=== PATIENT | male | born 1980 | race Caucasian/White ===

== ENCOUNTER → 2019-08-17 08:39 | Outpatient (BNVA) | payer OTHER, SELFPAY | PROVIDERS: Family Provider Emergency Medicine Emergency Medical Services; PCP Emergency Medicine Emergency Medical Services; Visit Provider Nurse Practitioner | DX: M54.5 Low back pain (principal); G90.50 Complex regional pain syndrome I, unspecified; M79.604 Pain in right leg; M79.605 Pain in left leg; Z98.890 Other specified postprocedural states; Z79.891 Long term (current) use of opiate analgesic | CPT/HCPCS: 99214 ==

== ENCOUNTER → 2019-10-11 07:54 | Outpatient (BNVA) | payer OTHER, SELFPAY | PROVIDERS: Family Provider Emergency Medicine Emergency Medical Services; PCP Emergency Medicine Emergency Medical Services; Visit Provider Anesthesiology | DX: M54.5 Low back pain (principal); G90.50 Complex regional pain syndrome I, unspecified; M79.604 Pain in right leg; M79.605 Pain in left leg; Z79.891 Long term (current) use of opiate analgesic | CPT/HCPCS: 99214 ==

== ENCOUNTER → 2020-01-24 11:03 | Outpatient (BNVA) | payer OTHER, SELFPAY | PROVIDERS: Family Provider Emergency Medicine Emergency Medical Services; PCP Emergency Medicine Emergency Medical Services; Visit Provider Podiatrist Foot & Ankle Surgery | DX: M25.571 Pain in right ankle and joints of right foot (principal); M25.572 Pain in left ankle and joints of left foot | CPT/HCPCS: 73610 ==

== ENCOUNTER 2020-01-24 14:03 | Outpatient (CLI) | payer OTHER, SELFPAY | END 2020-01-24 14:04 | disposition home or self-care (01) | LOC: SPT 14:03 | PROVIDERS: Family Provider Emergency Medicine Emergency Medical Services; PCP Emergency Medicine Emergency Medical Services; Visit Provider Podiatrist Foot & Ankle Surgery | DX: M72.2 Plantar fascial fibromatosis (principal) | CPT/HCPCS: 97760; L4397 ==

== ENCOUNTER → 2020-02-08 10:29 | Outpatient (BNVA) | payer OTHER, SELFPAY | PROVIDERS: Family Provider Emergency Medicine Emergency Medical Services; PCP Emergency Medicine Emergency Medical Services; Visit Provider Nurse Practitioner | DX: G90.50 Complex regional pain syndrome I, unspecified (principal); M54.5 Low back pain; M79.604 Pain in right leg; Z79.891 Long term (current) use of opiate analgesic | CPT/HCPCS: 99213 ==

== ENCOUNTER 2020-02-27 06:00 | Outpatient (RCR) | payer OTHER, SELFPAY | END 2020-03-08 23:59 | disposition home or self-care (01) | LOC: MPT 06:00 | PROVIDERS: PCP Emergency Medicine Emergency Medical Services; Referring Provider Podiatrist Foot & Ankle Surgery; Visit Provider Podiatrist Foot & Ankle Surgery | DX: M72.2 Plantar fascial fibromatosis (principal) | CPT/HCPCS: 97110; 97140; 97161 ==

== ENCOUNTER 2020-03-09 06:00 | Outpatient (RCR) | payer OTHER, SELFPAY | END 2020-04-08 23:59 | disposition home or self-care (01) | LOC: MPT 06:00 | PROVIDERS: PCP Emergency Medicine Emergency Medical Services; Referring Provider Podiatrist Foot & Ankle Surgery; Visit Provider Podiatrist Foot & Ankle Surgery | DX: M72.2 Plantar fascial fibromatosis (principal) | CPT/HCPCS: 97035; 97110; 97140 ==

== ENCOUNTER 2020-04-09 06:00 | Outpatient (RCR) | payer OTHER, SELFPAY | END 2020-05-08 23:59 | disposition home or self-care (01) | LOC: MPT 06:00 | PROVIDERS: PCP Emergency Medicine Emergency Medical Services; Referring Provider Podiatrist Foot & Ankle Surgery; Visit Provider Podiatrist Foot & Ankle Surgery | DX: M72.2 Plantar fascial fibromatosis (principal) | CPT/HCPCS: 97110; 97112; 97140 ==

== ENCOUNTER → 2020-04-11 10:32 | Outpatient (BNVA) | payer OTHER, SELFPAY | PROVIDERS: Family Provider Emergency Medicine Emergency Medical Services; PCP Emergency Medicine Emergency Medical Services; Visit Provider Anesthesiology | DX: G90.50 Complex regional pain syndrome I, unspecified (principal); M79.604 Pain in right leg; M54.9 Dorsalgia, unspecified; M79.605 Pain in left leg; Z98.890 Other specified postprocedural states; Z79.891 Long term (current) use of opiate analgesic | CPT/HCPCS: 99213; 99214 ==

== ENCOUNTER → 2020-06-18 10:00 | Outpatient (BNVA) | payer OTHER, SELFPAY | PROVIDERS: Family Provider Emergency Medicine Emergency Medical Services; PCP Emergency Medicine Emergency Medical Services; Visit Provider Anesthesiology | DX: M54.41 Lumbago with sciatica, right side (principal); G90.50 Complex regional pain syndrome I, unspecified; M79.604 Pain in right leg; M79.605 Pain in left leg; M54.9 Dorsalgia, unspecified; Z79.891 Long term (current) use of opiate analgesic | CPT/HCPCS: 99214 ==

== ENCOUNTER 2020-07-09 06:00 | Outpatient (RCR) | payer OTHER, SELFPAY | END 2020-08-08 23:59 | disposition home or self-care (01) | LOC: MPT 06:00 | PROVIDERS: Family Provider Emergency Medicine Emergency Medical Services; PCP Emergency Medicine Emergency Medical Services; Referring Provider Podiatrist Foot & Ankle Surgery; Visit Provider Podiatrist Foot & Ankle Surgery | DX: M72.2 Plantar fascial fibromatosis (principal) | CPT/HCPCS: 97110; 97140 ==

== ENCOUNTER 2020-08-09 06:00 | Outpatient (RCR) | payer OTHER, SELFPAY | END 2020-09-08 23:59 | disposition home or self-care (01) | LOC: MPT 06:00 | PROVIDERS: Family Provider Emergency Medicine Emergency Medical Services; PCP Emergency Medicine Emergency Medical Services; Referring Provider Podiatrist Foot & Ankle Surgery; Visit Provider Podiatrist Foot & Ankle Surgery | DX: M72.2 Plantar fascial fibromatosis (principal) | CPT/HCPCS: 97110; 97140 ==

== ENCOUNTER → 2020-08-14 09:02 | Outpatient (BNVA) | payer OTHER, SELFPAY | PROVIDERS: Family Provider Emergency Medicine Emergency Medical Services; PCP Emergency Medicine Emergency Medical Services; Visit Provider Anesthesiology | DX: G89.29 Other chronic pain (principal); M54.9 Dorsalgia, unspecified; M79.604 Pain in right leg; Z98.890 Other specified postprocedural states; Z79.891 Long term (current) use of opiate analgesic; Z79.899 Other long term (current) drug therapy | CPT/HCPCS: 99213 ==

== ENCOUNTER 2020-09-09 06:00 | Outpatient (RCR) | payer OTHER, SELFPAY | END 2020-10-06 23:59 | disposition home or self-care (01) | LOC: MPT 06:00 | PROVIDERS: Family Provider Emergency Medicine Emergency Medical Services; PCP Emergency Medicine Emergency Medical Services; Referring Provider Podiatrist Foot & Ankle Surgery; Visit Provider Podiatrist Foot & Ankle Surgery | DX: M72.2 Plantar fascial fibromatosis (principal) | CPT/HCPCS: 97110; 97140 ==

== ENCOUNTER → 2020-10-16 08:42 | Outpatient (BNVA) | payer OTHER, SELFPAY | PROVIDERS: Family Provider Emergency Medicine Emergency Medical Services; PCP Emergency Medicine Emergency Medical Services; Visit Provider Anesthesiology | DX: G89.29 Other chronic pain (principal); M54.9 Dorsalgia, unspecified; M79.604 Pain in right leg; Z98.890 Other specified postprocedural states; Z79.899 Other long term (current) drug therapy; Z79.891 Long term (current) use of opiate analgesic | CPT/HCPCS: 99213 ==

== ENCOUNTER → 2020-11-28 12:26 | Outpatient (BNVA) | payer OTHER, SELFPAY | PROVIDERS: Family Provider Emergency Medicine Emergency Medical Services; PCP Emergency Medicine Emergency Medical Services; Visit Provider Surgery | DX: Z86.010 Personal history of colon polyps (principal); Z20.822 Contact with and (suspected) exposure to COVID-19 | CPT/HCPCS: 87635 ==

== ENCOUNTER 2020-12-04 06:58 | Day surgery (SDC) | payer OTHER, SELFPAY ==
[2020-12-02 12:03] VITALS: BMI 32.8
--- NOTE | 2020-12-04 07:28 | ANES.PREANE2 ---
Pre-Anesthetic Assessment Pre-Anesthetic Assessment: Height/Weight: Height 1.7 m Weight 95.254 kg Preop Diagnosis: Bleeding per rectum and history of colon polyps Proposed Procedure: Operation Date: 12/04/20 08:30 Proposed Procedures p Colonoscopy 08671 Z86.010(Not Applicable) - Hang Jaimes MD Familial anesthetic complications: None Last intake: NPO > 8 hrs Social: Social History: No alcohol and No tobacco Exam: Pre-Anes Outpt Exam: alert, oriented x 3, clear to auscultation bilaterally and regular rate & rhythm Airway: Cervical ROM: WNL MP: 4 Dentition: Full Additional comments: full sesay, large tongue Pulmonary: Pulmonary: Asthma, COPD and Sleep apnea CV/HEM: CV/HEM: HTN GI: GI: GERD (wel lcontrolled on esomeprazole) Comments: IBS, hx of polyps, diverticulitis hx Metabolic: Metabolic: DM Musc/skel: Comments: spinal cord stimulator, complex regional pain disorder (lower legs) d/t compartment syndrome Anesthetic Plan: ASA status: 3 Anesthesia: MAC Risk of > 500 ml blood loss (7ml/kg in children): No PFSH Anesthesia PFSH: Medical History Asthma 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 Bilateral leg pain Chronic back pain Chronic narcotic use Complex regional pain syndrome type 1 COPD (chronic obstructive pulmonary disease) Diabetes 1.5, managed as type 2 Long-term use of high-risk medication Surgical History Hx of biopsy cyst on the left side of neck-benign S/P compartment syndrome decompression BILATERAL- Below the knee - total of 4 surgeries 2 initial surgeries and 2 revisions S/P insertion of spinal cord stimulator 04/2018 S/P routine circumcision Family History Grandfather CAD (coronary artery disease) Denies family history of Anesthesia complication Bleeding disorder Social History Smoking and tobacco status: former smoker Second hand smoke exposure: No Alcohol intake: never Lives independently: Yes Household members: spouse service: Yes status: Discharged History of recent travel: No Data Anesthesia Cardiac Studies: No Data to Display
[2020-12-04] MEDS: sodium chloride 0.9% 1,000 ML 30 ML IV (08:10)
[2020-12-04 08:12] VITALS: BP 118/79; PULSE 87; RESP 18; TEMP 36.8; O2SAT 97
--- NOTE | 2020-12-04 08:12 | W.PM.OPSUD ---
Surgery/Procedure H&P Update DATE OF PROCEDURE: December 04, 2020 DATE H&P PERFORMED: 11/06/20 H&P UPDATE INFORMATION: I have reviewed H&P completed within last 30 days, I have examined patient prior to procedure and No changes to prior documentation PREOP DIAGNOSIS: Bleeding per rectum and history of colon polyps PRIMARY INDICATION FOR PROCEDURE: The same PLANNED PROCEDURE: Operation Date: 12/04/20 08:30 Proposed Procedures p Colonoscopy 35871 Z86.010(Not Applicable) - Hang Jaimes MD
[2020-12-04 08:25] LABS: Glucose Point of Care 194 mg/dL (70-110)
[2020-12-04 08:40] VITALS: BP 116/69; PULSE 96; RESP 16; TEMP 36.1; O2SAT 91
[2020-12-04 08:55] VITALS: BP 117/76; PULSE 82; RESP 16; O2SAT 93
--- NOTE | 2020-12-04 13:13 | ANE.PACU2 ---
Inpatient post-anesthesia follow up: Airway intact: Yes Vital signs: Temperature 97.0 F Pulse Rate 82 Respiratory Rate 16 Blood Pressure 117/76 Pulse Oximetry 93 Oxygen Delivery Me thod Room Air Oxygen Flow Rate 3 Fraction of Inspir ed Oxygen Hydration adequate: Yes Nausea and vomiting: No Pain level: 2 Mental status: Baseline
== END 2020-12-04 09:17 | disposition home or self-care (01) ==
PROVIDERS: Visit Provider Surgery
PROC: 0DJD8ZZ Inspection of Lower Intestinal Tract, Via Natural or Artificial Opening Endoscopic (ICD-10-PCS; CPT 45378; principal; 2020-12-04 08:30)
DX: K62.5 Hemorrhage of anus and rectum (principal); Z86.010 Personal history of colon polyps; K57.30 Diverticulosis of large intestine without perforation or abscess without bleeding; J44.9 Chronic obstructive pulmonary disease, unspecified; G47.30 Sleep apnea, unspecified; K21.9 Gastro-esophageal reflux disease without esophagitis; I10 Essential (primary) hypertension; E13.9 Other specified diabetes mellitus without complications; Z87.891 Personal history of nicotine dependence
CPT/HCPCS: 36416; 45378; 82962; 96360; J2704; J7030

== ENCOUNTER → 2020-12-11 09:46 | Outpatient (BNVA) | payer OTHER, SELFPAY | PROVIDERS: PCP Emergency Medicine Emergency Medical Services; Visit Provider Anesthesiology | DX: G89.29 Other chronic pain (principal); M54.9 Dorsalgia, unspecified; Z79.899 Other long term (current) drug therapy; Z79.891 Long term (current) use of opiate analgesic | CPT/HCPCS: 99213 ==

== ENCOUNTER → 2021-02-07 08:08 | Outpatient (BNVA) | payer OTHER, SELFPAY | PROVIDERS: PCP Emergency Medicine Emergency Medical Services; Visit Provider Anesthesiology | DX: G89.29 Other chronic pain (principal); M54.9 Dorsalgia, unspecified; Z79.899 Other long term (current) drug therapy; Z79.891 Long term (current) use of opiate analgesic; Z87.891 Personal history of nicotine dependence | CPT/HCPCS: 99213 ==

== ENCOUNTER → 2021-04-15 10:16 | Outpatient (BNVA) | payer OTHER, SELFPAY | PROVIDERS: PCP Emergency Medicine Emergency Medical Services; Visit Provider Nurse Practitioner | DX: G89.29 Other chronic pain (principal); M54.9 Dorsalgia, unspecified; M79.604 Pain in right leg; M79.605 Pain in left leg; Z98.890 Other specified postprocedural states; Z79.891 Long term (current) use of opiate analgesic; Z87.891 Personal history of nicotine dependence | CPT/HCPCS: 99213 ==

== ENCOUNTER → 2021-06-04 13:30 | Outpatient (BNVA) | payer OTHER, SELFPAY | PROVIDERS: PCP Emergency Medicine Emergency Medical Services; Visit Provider Internal Medicine Critical Care Medicine | DX: J45.909 Unspecified asthma, uncomplicated (principal); R06.02 Shortness of breath; J45.50 Severe persistent asthma, uncomplicated; R40.0 Somnolence | CPT/HCPCS: 82785; 85025; 86003 ==

== ENCOUNTER → 2021-06-12 09:11 | Outpatient (BNVA) | payer OTHER, SELFPAY | PROVIDERS: PCP Emergency Medicine Emergency Medical Services; Visit Provider Anesthesiology | DX: G89.29 Other chronic pain (principal); M54.9 Dorsalgia, unspecified; Z79.899 Other long term (current) drug therapy; Z79.891 Long term (current) use of opiate analgesic; Z87.891 Personal history of nicotine dependence | CPT/HCPCS: 99213 ==

== ENCOUNTER → 2021-08-13 10:16 | Outpatient (BNVA) | payer OTHER, SELFPAY | PROVIDERS: PCP Emergency Medicine Emergency Medical Services; Visit Provider Anesthesiology | DX: G89.29 Other chronic pain (principal); M54.50 Low back pain, unspecified; M79.604 Pain in right leg; M79.605 Pain in left leg; Z98.890 Other specified postprocedural states; Z79.891 Long term (current) use of opiate analgesic; Z79.899 Other long term (current) drug therapy; Z87.891 Personal history of nicotine dependence | CPT/HCPCS: 99214 ==

== ENCOUNTER → 2023-02-25 16:16 | Outpatient (BNVA) | payer OTHER, SELFPAY | PROVIDERS: PCP Emergency Medicine Emergency Medical Services; Visit Provider Internal Medicine Pulmonary Disease | DX: J44.9 Chronic obstructive pulmonary disease, unspecified (principal); G47.33 Obstructive sleep apnea (adult) (pediatric); J45.50 Severe persistent asthma, uncomplicated | CPT/HCPCS: 71046; 99214 ==

== ENCOUNTER 2023-03-18 07:01 | Outpatient (CLI) | payer OTHER, SELFPAY ==
[2023-03-18 07:13] VITALS: BP 143/90
== END 2023-03-18 07:02 | disposition home or self-care (01) ==
PROVIDERS: PCP Emergency Medicine Emergency Medical Services; Visit Provider Internal Medicine Pulmonary Disease
DX: J44.9 Chronic obstructive pulmonary disease, unspecified (principal); J45.50 Severe persistent asthma, uncomplicated; G47.33 Obstructive sleep apnea (adult) (pediatric)
CPT/HCPCS: 94010; 94618; 94726; 94729

== ENCOUNTER 2023-06-02 02:21 | Emergency (ER) | payer OTHER, SELFPAY ==
[2023-06-02] VITALS (9 sets, daily range): BP systolic 114–144; BP diastolic 76–89; PULSE 80–97; RESP 16–27; TEMP 36.7; O2SAT 89–97; BMI 31.8
--- NOTE | 2023-06-02 02:35 | W.ED.GENADLT ---
HPI - General Adult General: Chief complaint: General Medical Stated complaint: was foaming out of mouth,ambulance advised coming Time Seen by Provider: 06/02/23 02:25 History of Present Illness: Patient was sleeping with his CPAP on and patient's noticed that his mouth. Patient was also unresponsiveThe patient had bloody tinged foam patient's said he was breathing and had a pulse however she started CPR due to him not responding. Patient says he bit the tip of his tongue. states he is episode lasted 5 to 7 minutes. Patient currently has a headache which is not unusual for him. This is his normal headache. Patient denies any cardiac or seizure history. Patient does have a spinal cord stimulator and is a diabetic. Other than the patient's headache and tongue irritation patient denies any complaints and is all back to normal currently. Review of Systems General: Reports: 10 or more systems reviewed and unremarkable except in HPI and below [facility] ED PFSH: Medical History Asthma 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 Bilateral leg pain Bleeding per rectum Chronic back pain Chronic narcotic use Complex regional pain syndrome type 1 COPD (chronic obstructive pulmonary disease) Diabetes 1.5, managed as type 2 Diverticulosis Long-term use of high-risk medication Surgical History Hx of biopsy cyst on the left side of neck-benign S/P compartment syndrome decompression BILATERAL- Below the knee - total of 4 surgeries 2 initial surgeries and 2 revisions S/P insertion of spinal cord stimulator 04/2018 S/P routine circumcision Family History Grandfather CAD (coronary artery disease) Denies family history of Anesthesia complication Bleeding disorder Social History Smoking and tobacco/nicotine status: never used tobacco/nicotine (chewing tobacco x 20 years) Second hand smoke exposure: No Alcohol intake: never Substance/Drug Use: never Lives independently: Yes Household members: spouse service: Yes status: Discharged Physical Exam Const: COMMON NORMALS: no acute distress, average body habitus, patient oriented x3, no limitations, healthy appearing, alert and well nourished HENMT: COMMON NORMALS: normocephalic, atraumatic, hearing grossly normal bilaterally, external ears normal, Normal external nose present, moist oral mucous membranes and oropharynx normal (Mild irritation at the tip of the tongue) HEAD & SCALP: normocephalic and atraumatic NOSE: Normal external nose present EXTERNAL EAR: Yes external ears normal Eye: COMMON NORMALS: Equal, round and reactive pupils present, EOMs intact bilaterally, conjunctivae normal and no scleral icterus CONJUNCTIVA: Yes conjunctivae normal PUPIL: Yes Equal, round and reactive pupils present Neck/C-Spine: COMMON NORMALS: full ROM, no lymphadenopathy, supple, no meningeal signs, no JVD and Thyroid normal THYROID: Thyroid normal Chest: COMMONS NORMALS: normal inspection of the chest and normal palpation of entire chest wall Resp: COMMON NORMALS: normal respiratory effort, No retractions, No use of accessory muscles and clear to auscultation bilaterally AUSCULTATION: clear to auscultation bilaterally Cardio: COMMON NORMALS: no JVD, regular rate, regular rhythm, S1 normal heart sound present, S2 normal heart sound present, No gallops present (Cardio), No clicks present (Cardio), No murmurs present (Cardio) and No rub (Cardio) RATE: regular rate RHYTHM: regular rhythm HEART SOUNDS: S1 normal heart sound present and S2 normal heart sound present GI: COMMON NORMALS: Normal to inspection, nondistended, normoactive bowel sounds present, Soft to palpation, non-tender, No hepatosplenomegaly present and no masses PALPATION: Yes Soft to palpation and Yes No hepatosplenomegaly present Neuro: COMMON NORMALS: patient oriented x3 SENSORIUM/ORIENTATION: Yes alert MENINGEAL SIGNS: Yes no meningeal signs Course Vital Signs: Vital signs: Vital Signs Temperature 98.0 F 06/02/23 02:27 Pulse Rate 80 06/02/23 04:02 Respiratory Rate 20 H 06/02/23 04:02 Blood Pressure 125/89 06/02/23 04:02 Pulse Oximetry 89 L 06/02/23 04:02 Oxygen Delivery Me thod Room Air 06/02/23 03:30 [facility] - General Adult Medical Decision Making Patient was worked up in a standard Fashion with chest x-ray EKG and lab work. Chest x-ray was read office normal EKG did not show any acute changes, prolactin was 4.98 [employer] SOC[employer] WORKER was 7.136, troponin was normal CBC CMP was normal. Magnesium is slightly elevated 2.7. Endings was discussed with the patient and family and due to physical exam being negative as well as his lab work being benign patient will be discharged home. Patient is to follow-up with his family practice doctor within the next 7 to 10 days for further evaluation and treatment. Differential Diagnosis Unresponsiveness, foaming at the mouth, Medical Records I reviewed the patient's medical records. Lab Data I reviewed the patient's lab results. 06/02/23 02:35 06/02/23 02:35 Radiology Impressions Chest X-Ray 06/02/23 02:40 IMPRESSION: No acute cardiopulmonary abnormality. Laboratory Results WBC 11.41 10^3/uL (3.29-11.43) 06/02/23 02:35 RBC 4.77 10^6/uL (3.85-5.65) 06/02/23 02:35 Hgb 14.40 g/dL (11.27-16.99) 06/02/23 02:35 Hct 43.2 % (37-53) 06/02/23 02:35 MCV 90.6 fl (82-101) 06/02/23 02:35 MCH 30.2 pg (27-33) 06/02/23 02:35 MCHC 33.3 g/dL (30-55) 06/02/23 02:35 RDW 12.5 % (12.1-15.1) 06/02/23 02:35 Plt Count 345 10^3/cmm (157-399) 06/02/23 02:35 MPV 8.8 fL (7.4-10.4) 06/02/23 02:35 Neut % (Auto) 78.4 % 06/02/23 02:35 Lymph % (Auto) 14.0 % 06/02/23 02:35 Brantley % (Auto) 5.0 % 06/02/23 02:35 Eos % (Auto) 1.6 % 06/02/23 02:35 Baso % (Auto) 0.6 % 06/02/23 02:35 Neut # (Auto) 8.95 10^3/uL (1.8-7.7) H 06/02/23 02:35 Lymph # (Auto) 1.6 10^3/uL (0.8-4.8) 06/02/23 02:35 Brantley # (Auto) 0.6 10^3/uL (0.2-0.9) 06/02/23 02:35 Eos # (Auto) 0.2 10^3/uL (0.0-0.8) 06/02/23 02:35 Baso # (Auto) 0.1 10^3/uL (0.0-0.1) 06/02/23 02:35 Nucleated RBC % (auto) 0 % 06/02/23 02:35 Nucleated RBCs # 0.0 /100WBC 06/02/23 02:35 Sodium 139 mmol/L (136-145) 06/02/23 02:35 Potassium 4.1 mmol/L (3.5-5.1) 06/02/23 02:35 Chloride 103 mmol/L (98-107) 06/02/23 02:35 Carbon Dioxide 25 mmol/L (22-29) 06/02/23 02:35 Anion Gap 15.1 (5-19) 06/02/23 02:35 BUN 12 mg/dL (6-20) 06/02/23 02:35 Creatinine 1.1 mg/dL (0.7-1.2) 06/02/23 02:35 GFR Calculation 73.8 mL/min (90-130) L 06/02/23 02:35 Glucose 172 mg/dL (65-115) H 06/02/23 02:35 POC Glucose 157 mg/dL (70-110) H 06/02/23 02:40 Calculated Osmolality 292 mOsm/kg (285-295) 06/02/23 02:35 Calcium 9.9 mg/dL (8.5-10.5) 06/02/23 02:35 Magnesium 2.7 mg/dL (1.7-2.3) H 06/02/23 02:35 Total Bilirubin 0.2 mg/dL (0.15-1.2) 06/02/23 02:35 AST 19 U/L (0-40) 06/02/23 02:35 ALT 21 U/L (0-41) 06/02/23 02:35 Alkaline Phosphatase 72 U/L (40-130) 06/02/23 02:35 Troponin T Baseline 9 ng/L (0-15) 06/02/23 02:35 NT-Pro-B Natriuret Pep 36 pg/mL (0-125) 06/02/23 02:35 Total Protein 7.1 g/dL (6.6-8.7) 06/02/23 02:35 Albumin 5.0 g/dL (3.5-5.2) 06/02/23 02:35 Globulin 2.1 g/dL (1.3-4.6) 06/02/23 02:35 Prolactin 4.98 ng/mL (4.0-15.2) 06/02/23 02:35 All radiology interpretation(s) finalized by discharge EKG Data EKG 1: I personally reviewed and interpreted this EKG as follows: EKG interpretation date: 06/02/23 EKG interpretation time: 02:26 Prior EKG tracings: not available for review Interpretation: EKG showed ventricular rate 84 bpm, IL interval 155, QRS duration 101, QTc of 381, Computer generated interpretation: Chest X-Ray 06/02/23 02:40 IMPRESSION: No acute cardiopulmonary abnormality. Discharge Plan Discharge Patient Disposition: Home Clinical Impression: Unresponsive episode, Obstructive sleep apnea, Tongue biting Condition: Stable Prescriptions: No Action acetaminophen [Acetaminophen Extra Strength] 500 mg tablet 500 mg PO Q4H PRN (Reason: Pain) metformin 1,000 mg tablet,ER leonid.retention 24 hr 1,000 mg PO BID omega-3 fatty acids 500 mg capsule 500 mg PO BID esomeprazole magnesium 40 mg capsule,delayed release(DR/EC) 40 mg PO ONCE glipizide 5 mg tablet 5 mg PO BID sildenafil [Viagra] 50 mg tablet 25 mg PO ONCE PRN (Reason: Sexual Activity) aspirin 81 mg tablet,chewable 81 mg PO ONCE cholecalciferol (vitamin D3) [D3-2000] 50 mcg (2,000 unit) capsule 50 mcg PO DAILY amitriptyline 50 mg tablet 25 mg PO .BEDTIME rosuvastatin [Crestor] 5 mg tablet 5 mg PO DAILY (DME) Jobst medical compression stockings 20-30 mmHg See Rx Instructions .Route .MEDSUPPLY Qty: 1 0RF Rx Instructions: As directed nitroglycerin 0.1 mg/hr patch 24 hour 1 patch transdermal DAILY Qty: 60 3RF hydrocodone-acetaminophen 10-325 mg tablet 1 tab PO TID PRN (Reason: pain) 30 Days Qty: 90 0RF Rx Instructions: fill on or after 08/15/21 hydrocodone-acetaminophen 10-325 mg tablet 1 tab PO TID PRN (Reason: pain) 30 Days Qty: 90 0RF Rx Instructions: fill on or after 09/14/21 tizanidine 4 mg tablet 4 mg PO TID PRN (Reason: muscle spasticity) 30 Days Qty: 90 1RF (DME) Night Splint See Rx Instructions .ROUTE .MEDSUPPLY Qty: 1 0RF Rx Instructions: As directed fluticasone propionate 50 mcg/actuation spray,suspension 2 spray INTRANASAL DAILY Rx Instructions: administer into each nostril clindamycin phosphate 1 % lotion 1 applic topical BID Breo Ellipta 200-25 mcg/dose blister with device 1 inh inhalation DAILY 60 Days Qty: 60 5RF Rx Instructions: The patient has significant improvement in his symptoms with Breo. Please do not substitute. fluticasone propion-salmeterol [Wixela Inhub] 500-50 mcg/dose blister with device 1 inh inhalation BID Qty: 60 5RF albuterol sulfate [ProAir HFA] 90 mcg/actuation HFA aerosol inhaler 1 inh INHALATION Q6H PRN (Reason: shortness of breath or wheezing) Discharge Orders: Discharge ED (Routine); Ordered 06/02/23 Ordered By: Gilmar Zuniga Referrals: Ibrahima Null DO [Primary Care Provider] - Patient Instructions: Obstructive Sleep Apnea Activity Restrictions/Additional Instructions: your exam and work-up in the ER did not show any acute causes for your symptoms But it did rule a lot of things out. Please follow-up with your family practice physician in 7 to 10 days for further evaluation and testing as needed. Coding Level of Care Code ED Well Services Operator for Rachana Fuentes
--- NOTE | 2023-06-02 02:40 | XRR_ITS ---
PROCEDURE INFORMATION: Exam: XR Chest Exam date and time: 06/02/2023 2:45 AM Age: 43 years old Clinical indication: Other: HTN TECHNIQUE: Imaging protocol: Radiologic exam of the chest. Views: 1 view. COMPARISON: CR XR chest 2V* [id number] 02/25/2023 4:17 PM FINDINGS: Tubes, catheters and devices: Spinal electrodes are unchanged. Lungs: Clear, symmetrically inflated lungs. Pleural spaces: No pleural effusion. No pneumothorax. Heart/Mediastinum: Cardiac silhouette is normal in size for technique. Bones/joints: Age appropriate. XR/XR chest 1V portable [id number] IMPRESSION: No acute cardiopulmonary abnormality.
--- NOTE | 2023-06-02 02:40 | ECG_ITS ---
[facility] Test Date: 2023-06-02 Pat Name: Octaviano Darden Department: Room: Gender: Male Police Captain: : 1980 Requested By: Gilmar Zuniga Order Number: [id number] Dontae MD: Mehul Farley M.D. Measurements Intervals [place] Rate: 84 P: 20 [place]: 155 QRS: 41 QRSD: 101 T: 41 QT: 340 QTc: 404 Interpretive Statements SINUS RHYTHM WITH BASELINE ARTIFACT Compared to ECG 05/04/2018 12:35:15 Sinus arrhythmia no longer present Electronically Signed On 06-02-2023 8:01:44 CDT by Mehul Farley M.D. [id number] f
[2023-06-02 02:45] LABS: Glucose Point of Care 157 mg/dL (70-110)
[2023-06-02 02:45] LABS: Basophils # 0.1 10^3/uL (0.0-0.1); Basophils % 0.6 %; Eosinophils # 0.2 10^3/uL (0.0-0.8); Eosinophils % 1.6 %; Hematocrit 43.2 % (37-53); Lymphocytes # 1.6 10^3/uL (0.8-4.8); Mean Corpuscular HGB Conc 33.3 g/dL (30-55); Mean Corpuscular Hemoglobin 30.2 pg (27-33); Mean Corpuscular Volume 90.6 fl (82-101); Mean Platelet Volume 8.8 fL (7.4-10.4); Monocytes # 0.6 10^3/uL (0.2-0.9); Neutrophils # 8.95 10^3/uL (1.8-7.7); Neutrophils % 78.4 %; Nucleated Red Blood Cells % 0 %; Platelet Count 345 10^3/cmm (157-399); Red Blood Count 4.77 10^6/uL (3.85-5.65); Red Cell Distribution Width 12.5 % (12.1-15.1); White Blood Count 11.41 10^3/uL (3.29-11.43)
--- NOTE | 2023-06-02 03:00 | PC.NURSE ---
pts blood sugar 157 via fingerstick. pt states he drank orange juice prior to arrival. Dr. Zuniga notified.
[2023-06-02 03:09] LABS: Troponin(5th) Baseline 9 ng/L (0-15)
[2023-06-02 03:19] LABS: Alanine Aminotransferase 21 U/L (0-41); Alkaline Phosphatase 72 U/L (40-130); Anion Gap 15.1 (5-19); Aspartate Amino Transferase 19 U/L (0-40); Blood Urea Nitrogen 12 mg/dL (6-20); Calcium 9.9 mg/dL (8.5-10.5); Carbon Dioxide 25 mmol/L (22-29); Chloride 103 mmol/L (98-107); Globulin 2.1 g/dL (1.3-4.6); Glomerular Filtration Rate 73.8 mL/min (90-130); Glucose 172 mg/dL (65-115); Magnesium 2.7 mg/dL (1.7-2.3); NT Pro B Type Natriuretic Pept 36 pg/mL (0-125); Osmolality Calculated 292 mOsm/kg (285-295); Potassium 4.1 mmol/L (3.5-5.1); Sodium 139 mmol/L (136-145); Total Bilirubin 0.2 mg/dL (0.15-1.2); Total Protein 7.1 g/dL (6.6-8.7)
[2023-06-02 03:45] LABS: Prolactin 4.98 ng/mL (4.0-15.2)
== END 2023-06-02 04:03 | disposition home or self-care (01) ==
PROVIDERS: Emergency Provider Emergency Medicine; PCP Emergency Medicine Emergency Medical Services
DX: R40.4 Transient alteration of awareness (principal); G47.33 Obstructive sleep apnea (adult) (pediatric); S01.552A Open bite of oral cavity, initial encounter; X58.XXXA Exposure to other specified factors, initial encounter; E13.9 Other specified diabetes mellitus without complications; Z79.84 Long term (current) use of oral hypoglycemic drugs; F17.220 Nicotine dependence, chewing tobacco, uncomplicated; Z79.82 Long term (current) use of aspirin; J44.9 Chronic obstructive pulmonary disease, unspecified
CPT/HCPCS: 36416; 71045; 80053; 82962; 83735; 83880; 84146; 84484; 85025; 93005; 99285

== ENCOUNTER → 2023-09-27 14:51 | Outpatient (BNVA) | payer SELFPAY | PROVIDERS: PCP Emergency Medicine Emergency Medical Services; Referring Provider Dermatology; Visit Provider Dermatology | DX: Z13.6 Encounter for screening for cardiovascular disorders (principal); Z79.899 Other long term (current) drug therapy | CPT/HCPCS: 80061; 82947; 83036 ==

== ENCOUNTER 2024-08-10 19:04 | Emergency (ER) | payer OTHER, MEDICARE, SELFPAY ==
[2024-08-10 19:54] VITALS: BP 130/85; PULSE 80; RESP 16; TEMP 36.7; O2SAT 97; BMI 31.3
[2024-08-10 21:41] LABS: Basophils # 0.1 10^3/uL (0.0-0.1); Basophils % 0.5 %; Eosinophils # 0.1 10^3/uL (0.0-0.8); Eosinophils % 1.3 %; Hematocrit 45.3 % (37-53); Lymphocytes # 2.2 10^3/uL (0.8-4.8); Lymphocytes % 21.8 %; Mean Corpuscular HGB Conc 33.6 g/dL (30-55); Mean Corpuscular Hemoglobin 29.7 pg (27-33); Mean Corpuscular Volume 88.5 fl (82-101); Mean Platelet Volume 8.7 fL (7.4-10.4); Monocytes # 0.6 10^3/uL (0.2-0.9); Monocytes % 5.6 %; Neutrophils % 70.4 %; Nucleated Red Blood Cells % 0 %; Platelet Count 367 10^3/cmm (157-399); Red Blood Count 5.12 10^6/uL (3.85-5.65); Red Cell Distribution Width 12.3 % (12.1-15.1); White Blood Count 10.09 10^3/uL (3.29-11.43)
[2024-08-10 22:01] LABS: Anion Gap 14.8 (5-19); Blood Urea Nitrogen 14 mg/dL (6-20); Calcium 9.8 mg/dL (8.5-10.5); Carbon Dioxide 28 mmol/L (22-29); Chloride 99 mmol/L (98-107); Creatinine Clr Calc Pharmacy 114.8584; Glomerular Filtration Rate 92.5 mL/min (90-130); Glucose 96 mg/dL (65-115); Osmolality Calculated 286 mOsm/kg (285-295); Potassium 3.8 mmol/L (3.5-5.1); Sodium 138 mmol/L (136-145)
[2024-08-10 23:51] LABS: Bilirubin Urine Negative (Negative); Blood Urine Negative (Negative); Glucose Urine UA 3+ (Normal); Ketones Urine 1+ (Negative); Leukocyte Esterase Urine Negative (Negative); Nitrate Urine Negative (Negative); Protein Urine Negative (Negative); Specific Gravity, Urine 1.015 (1.005-1.030); Urine Appearance Clear (CLEAR); Urine Color Yellow (Yellow); Urobilinogen Urine 0.2 mg/dL (Negative)
[2024-08-10 23:56] LABS: Add Urine Microscopic? YES; Bacteria Urine None Seen /hpf; Hyaline Casts Urine 0-4 /lpf; RBC Urine 0-2 /hpf (0-2); Squamous Epithelial Cell Urine 0-5 /hpf (0-5); WBC Urine 0-5 /hpf (0-5)
--- NOTE | 2024-08-11 00:15 | XRR_ITS ---
PROCEDURE INFORMATION: Exam: XR Abdomen Exam date and time: 08/11/2024 12:42 AM Age: 44 years old Clinical indication: Constipation; Abdominal pain; Generalized; Prior surgery; Surgery date: 6+ months; Surgery type: Stimulator; Additional info: Abdominal pain, constipation TECHNIQUE: Imaging protocol: Radiologic exam of the abdomen. Views: Frontal supine view of the abdomen. 1 View. COMPARISON: CR XR chest 1V portable [id number] 06/02/2023 2:45 AM FINDINGS: Tubes, catheters and devices: Nerve stimulator device is seen. Gastrointestinal tract: Prominent proximal colonic stool burden. Paucity of small bowel gas. Vasculature: Calcified pelvic phleboliths. Bones/joints: Unremarkable. XR/XR KUB [id number] IMPRESSION: 1. Prominent proximal colonic stool burden. 2. Paucity of small bowel gas suggestive of enteritis. Correlate clinically.
--- NOTE | 2024-08-11 00:45 | ED_ITS ---
HPI - Abdominal Pain 2 General: Chief Complaint: Abdominal Pain Stated Complaint: trouble with stool Time Seen by Provider: 08/10/24 23:46 History of Present Illness: Patient is a 44-year-old male that presents to the emergency department today with complaints of rectal discomfort, constipation vomiting that started this week. Patient has been on laxatives all week without significant relief of his constipation. Patient reports he was started on Ozempic approximately 3 months ago and has been dealing with intermittent constipation since that time. Patient is also taking extra fiber but it appears he is not drinking plenty of fluid. Patient denies fever or chills. He denies any significant abdominal pain but does feel bloated and constipated. Related Data Home Medications Medication Instructions Recorded Confirmed acetaminophen 500 mg tablet 500 mg PO Q4H PRN Pain 08/16/19 08/20/23 (Acetaminophen Extra Strength) aspirin 81 mg chewable tablet 81 mg PO ONCE 08/16/19 08/20/23 cholecalciferol (vitamin D3) 50 50 mcg PO DAILY 08/16/19 08/20/23 mcg (2,000 unit) capsule (D3-2000) esomeprazole magnesium 40 mg 40 mg PO ONCE 08/16/19 08/20/23 capsule,delayed release glipizide 5 mg tablet 5 mg PO BID 08/16/19 08/20/23 metformin 1,000 mg 24 hr 1,000 mg PO BID 08/16/19 08/20/23 tablet,extended release (gastric reten.) omega-3 fatty acids 500 mg capsule 500 mg PO BID 08/16/19 08/20/23 sildenafil 50 mg tablet (Viagra) 25 mg PO ONCE PRN Sexual Activity 08/16/19 08/20/23 amitriptyline 50 mg tablet 25 mg PO .BEDTIME 10/11/19 08/20/23 fluticasone propionate 50 2 spray intranasal DAILY 02/08/20 08/20/23 mcg/actuation nasal spray,suspension clindamycin phosphate 1 % lotion 1 applic topical BID 10/16/20 08/20/23 rosuvastatin 5 mg tablet (Crestor) 5 mg PO DAILY 06/04/21 08/20/23 albuterol sulfate 90 mcg/actuation 1 inh inhalation Q6H PRN shortness 09/02/21 08/20/23 aerosol inhaler (ProAir HFA) of breath or wheezing fluticasone 250 mcg-salmeterol 50 1 inh inhalation BID 08/20/23 08/20/23 mcg/dose blistr powdr for inhalation (Tootielesterderek Inhub) Previous Rx's Medication Instructions Recorded Night Splint #1 ea 01/24/20 Jobst medical compression #1 ea 09/11/20 stockings 20-30 mmHg nitroglycerin 0.1 mg/hr 1 patch transdermal DAILY #60 ea 11/13/20 transdermal 24 hour patch hydrocodone 10 mg-acetaminophen 1 tab PO TID PRN pain 30 days #90 08/13/21 325 mg tablet tabs hydrocodone 10 mg-acetaminophen 1 tab PO TID PRN pain 30 days #90 08/13/21 325 mg tablet tabs tizanidine 4 mg tablet 4 mg PO TID PRN muscle spasticity 08/13/21 30 days #90 tabs Allergies Allergy/AdvReac Type Severity Reaction Status Date / Time gabapentin Allergy hallucinati Verified 08/20/23 09:07 ons pregabalin [From Lyrica] Allergy rash Verified 08/20/23 09:07 tiagabine [From Gabitril] Allergy seeing Verified 08/20/23 09:07 things per pt Review of Systems 2 General: Reports: 10 or more systems reviewed and unremarkable except in HPI and below PFSH ED 2 PFSH: Medical History Diverticulosis Bleeding per rectum Chronic back pain Chronic narcotic use COPD (chronic obstructive pulmonary disease) Diabetes 1.5, managed as type 2 Asthma 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 Bilateral leg pain Complex regional pain syndrome type 1 Long-term use of high-risk medication Surgical History S/P compartment syndrome decompression BILATERAL- Below the knee - total of 4 surgeries 2 initial surgeries and 2 revisions S/P insertion of spinal cord stimulator 04/2018 S/P routine circumcision Hx of biopsy cyst on the left side of neck-benign Family History Grandfather CAD (coronary artery disease) Denies family history of Anesthesia complication Bleeding disorder Social History Smoking and tobacco/nicotine status: never used tobacco/nicotine (chewing tobacco x 20 years) Second hand smoke exposure: No Alcohol intake: never Substance/Drug Use: never Lives independently: Yes Household members: spouse service: Yes status: Discharged Physical Exam 2 Const: COMMON NORMALS: no acute distress, patient oriented x3 and alert G ENERAL APPEARANCE: cooperative ORIENTATION/CONSCIOUSNESS: Yes awake, Yes oriented to person, Yes oriented to place and Yes oriented to time Neck/C-Spine: COMMON NORMALS: full ROM GENERAL: Yes normal visual inspection Chest: COMMONS NORMALS: normal inspection of the chest Breast/axilla inspection: Yes no chest deformity, asymmetry, normal contours, no nodules, masses, tenderness Resp: COMMON NORMALS: normal respiratory effort, No retractions, No use of accessory muscles and clear to auscultation bilaterally EFFORT & INSPECTION: Yes able to speak in complete sentences and Yes symmetric chest movement A USCULTATION: clear to auscultation bilaterally Cardio: COMMON NORMALS: regular rate, regular rhythm and Peripheral pulses 2+ throughout RATE: regular rate RHYTHM: regular rhythm PERIPHERAL PULSES: Peripheral pulses 2+ throughout GI: COMMON NORMALS: Normal to inspection, nondistended, normoactive bowel sounds present, Soft to palpation, non-tender and No hepatosplenomegaly present INSPECTION: Yes normal to inspection AUSCULTATION: Yes normoactive bowel sounds PALPATION: Yes Soft to palpation and Yes No hepatosplenomegaly present RECTAL EXAM: Yes deferred Neuro: COMMON NORMALS: patient oriented x3 SENSORIUM/ORIENTATION: Yes alert, Yes oriented to person, Yes oriented to place and Yes oriented to time CRANIAL NERVES: Yes CN normal except as noted Psych: COMMON NORMALS: mental status grossly normal, Normal thought process present, cooperative, activity/motor behavior normal, denies homicidal ideation and denies suicidal ideation THOUGHT PROCESS: Normal thought process present Course 2 Vital Signs: Vital signs: Vital Signs Temperature 98.1 F 08/10/24 19:54 Pulse Rate 80 08/10/24 19:54 Respiratory Rate 16 08/10/24 19:54 Blood Pressure 130/85 08/10/24 19:54 Pulse Oximetry 97 08/10/24 19:54 Oxygen Delivery Me thod Room Air 08/10/24 19:54 MDM - Abdominal Pain Medical Decision Making Patient is a 44-year-old man that presents to the emergency department with complaints of constipation. Patient underwent laboratory evaluation that included a CBC, CMP and a urinalysis. No significant electrolyte abnormality, normal renal and liver function. No evidence of leukocytosis anemia or thrombocytopenia. Urinalysis was unremarkable. KUB was ordered and reveals retained colonic stool throughout. No abnormal gas distribution pattern. Patient about disimpaction and starting on rectal medications for constipation. He is declining any further treatment and would like to trial management at home further. At this time no further diagnostics are warranted Lab Data 08/10/24 21:24 08/10/24 21:24 Labs/Radiology: Radiology Impressions KUB X-Ray 08/11/24 00:15 IMPRESSION: 1. Prominent proximal colonic stool burden. 2. Paucity of small bowel gas suggestive of enteritis. Correlate clinically. Laboratory Results WBC 10.09 10^3/uL (3.29-11.43) 08/10/24 21:24 RBC 5.12 10^6/uL (3.85-5.65) 08/10/24 21:24 Hgb 15.20 g/dL (11.27-16.99) 08/10/24 21:24 Hct 45.3 % (37-53) 08/10/24 21:24 MCV 88.5 fl (82-101) 08/10/24 21:24 MCH 29.7 pg (27-33) 08/10/24 21:24 MCHC 33.6 g/dL (30-55) 08/10/24 21:24 RDW 12.3 % (12.1-15.1) 08/10/24 21:24 Plt Count 367 10^3/cmm (157-399) 08/10/24 21:24 MPV 8.7 fL (7.4-10.4) 08/10/24 21:24 Neut % (Auto) 70.4 % 08/10/24 21:24 Lymph % (Auto) 21.8 % 08/10/24 21:24 [place] % (Auto) 5.6 % 08/10/24 21:24 Eos % (Auto) 1.3 % 08/10/24 21:24 Baso % (Auto) 0.5 % 08/10/24 21:24 Neut # (Auto) 7.10 10^3/uL (1.8-7.7) 08/10/24 21:24 Lymph # (Auto) 2.2 10^3/uL (0.8-4.8) 08/10/24 21:24 [place] # (Auto) 0.6 10^3/uL (0.2-0.9) 08/10/24 21:24 Eos # (Auto) 0.1 10^3/uL (0.0-0.8) 08/10/24 21:24 Baso # (Auto) 0.1 10^3/uL (0.0-0.1) 08/10/24 21:24 Nucleated RBC % (auto) 0 % 08/10/24 21:24 Nucleated RBCs # 0.0 /100WBC 08/10/24 21:24 Sodium 138 mmol/L (136-145) 08/10/24 21:24 Potassium 3.8 mmol/L (3.5-5.1) 08/10/24 21:24 Chloride 99 mmol/L (98-107) 08/10/24 21:24 Carbon Dioxide 28 mmol/L (22-29) 08/10/24 21:24 Anion Gap 14.8 (5-19) 08/10/24 21:24 BUN 14 mg/dL (6-20) 08/10/24 21:24 Creatinine 0.9 mg/dL (0.7-1.2) 08/10/24 21:24 GFR Calculation 92.5 mL/min (90-130) 08/10/24 21:24 Glucose 96 mg/dL (65-115) 08/10/24 21:24 Calculated Osmolality 286 mOsm/kg (285-295) 08/10/24 21:24 Calcium 9.8 mg/dL (8.5-10.5) 08/10/24 21:24 Urine Color Yellow (Yellow) 08/10/24 23:41 Urine Appearance Clear (CLEAR) 08/10/24 23:41 Urine pH 6.0 (5-7) 08/10/24 23:41 Ur Specific [place] 1.015 (1.005-1.030) 08/10/24 23:41 Urine Protein Negative (Negative) 08/10/24 23:41 Urine Glucose (UA) 3+ (Normal) H 08/10/24 23:41 Urine Ketones 1+ (Negative) H 08/10/24 23:41 Urine Blood Negative (Negative) 08/10/24 23:41 Urine Nitrate Negative (Negative) 08/10/24 23:41 Urine Bilirubin Negative (Negative) 08/10/24 23:41 Urine Urobilinogen 0.2 mg/dL (Negative) 08/10/24 23:41 Ur Leukocyte Esterase Negative (Negative) 08/10/24 23:41 Urine RBC 0-2 /hpf (0-2) 08/10/24 23:41 Urine WBC 0-5 /hpf (0-5) 08/10/24 23:41 Ur Squamous Epith Cells 0-5 /hpf (0-5) 08/10/24 23:41 Amorphous Sediment Not Reportable 08/10/24 23:41 Urine Bacteria None seen /hpf (NONE) 08/10/24 23:41 Hyaline Casts 0-4 /lpf H 08/10/24 23:41 XR interpretation done by ED provider, pending radiology final review Discharge Plan Discharge Patient Disposition: Home Clinical Impression: Acute constipation Condition: Stable Prescriptions: No Action acetaminophen [Acetaminophen Extra Strength] 500 mg tablet 500 mg PO Q4H PRN (Reason: Pain) metformin 1,000 mg tablet,ER leonid.retention 24 hr 1,000 mg PO BID omega-3 fatty acids 500 mg capsule 500 mg PO BID esomeprazole magnesium 40 mg capsule,delayed release(DR/EC) 40 mg PO ONCE glipizide 5 mg tablet 5 mg PO BID sildenafil [Viagra] 50 mg tablet 25 mg PO ONCE PRN (Reason: Sexual Activity) aspirin 81 mg tablet,chewable 81 mg PO ONCE cholecalciferol (vitamin D3) [D3-2000] 50 mcg (2,000 unit) capsule 50 mcg PO DAILY amitriptyline 50 mg tablet 25 mg PO .BEDTIME rosuvastatin [Crestor] 5 mg tablet 5 mg PO DAILY (DME) Jobst medical compression stockings 20-30 mmHg See Rx Instructions .Route .MEDSUPPLY Qty: 1 0RF Rx Instructions: As directed nitroglycerin 0.1 mg/hr patch 24 hour 1 patch transdermal DAILY Qty: 60 3RF hydrocodone-acetaminophen 10-325 mg tablet 1 tab PO TID PRN (Reason: pain) 30 Days Qty: 90 0RF Rx Instructions: fill on or after 08/15/21 hydrocodone-acetaminophen 10-325 mg tablet 1 tab PO TID PRN (Reason: pain) 30 Days Qty: 90 0RF Rx Instructions: fill on or after 09/14/21 tizanidine 4 mg tablet 4 mg PO TID PRN (Reason: muscle spasticity) 30 Days Qty: 90 1RF (DME) Night Splint See Rx Instructions .ROUTE .MEDSUPPLY Qty: 1 0RF Rx Instructions: As directed fluticasone propionate 50 mcg/actuation spray,suspension 2 spray INTRANASAL DAILY Rx Instructions: administer into each nostril clindamycin phosphate 1 % lotion 1 applic topical BID fluticasone propion-salmeterol [Wixela Inhub] 250-50 mcg/dose blister with device 1 inh inhalation BID albuterol sulfate [ProAir HFA] 90 mcg/actuation HFA aerosol inhaler 1 inh INHALATION Q6H PRN (Reason: shortness of breath or wheezing) Discharge Orders: Discharge ED (Routine); Ordered 08/11/24 Ordered By: Yolis Royal Referrals: Ibrahima Null, DO [Primary Care Provider] - Discharge Diet: Advance as tolerated Discharge Activity: Resume usual activity Patient Instructions: Constipation (ED), Opioid Safety, Pain Management Activity Restrictions/Additional Instructions: Started with rectal management of her constipation and then once having a bowel movement transition to oral. Glycerin suppositories will help lubricate the anus and allow stool to pass easier. Fleets enema will help with flushing stool out. However you may need to digitally disimpact the rectum. Once you are having bowel movements or you disimpact the rectum, then start with oral medications. Please follow-up with your primary care doctor. Medications that can be taken from the oral route include MiraLAX, Colace, magnesium citrate. Coding Level of Care Code ED Art Class Model for Rachana Fuentes
== END 2024-08-11 01:26 | disposition home or self-care (01) ==
PROVIDERS: Emergency Medicine; Emergency Provider Nurse Practitioner; PCP Emergency Medicine Emergency Medical Services
DX: K59.09 Other constipation (principal); Z79.84 Long term (current) use of oral hypoglycemic drugs; Z87.891 Personal history of nicotine dependence; E13.9 Other specified diabetes mellitus without complications; J44.9 Chronic obstructive pulmonary disease, unspecified
CPT/HCPCS: 36415; 74018; 80048; 81001; 85025; 99284

== ENCOUNTER 2024-09-16 01:56 | Emergency (ER) | payer OTHER, MEDICARE, SELFPAY ==
[2024-09-16 02:05] VITALS: BP 118/81; PULSE 95; RESP 18; TEMP 36.7; O2SAT 96; BMI 29.7
--- NOTE | 2024-09-16 03:05 | W.ED.NEUROSD ---
HPI - Neuro Symptoms/Deficit General: Chief Complaint: Neuro Symptoms/Deficit Stated Complaint: Unresponsive episode while sleeping Time Seen by Provider: 09/16/24 02:54 History of Present Illness: Patient presents to the ER with complaints of absent like seizure while he was sleeping. He did take a video with his phone where he staring off into space in his own little world unresponsive to his 's voice or touch. This lasted approximately 2 to 3 minutes before he starts coming to and answering questions. He comes to fairly quick and does not appear to be postictal or confused. Patient says this has happened several times in the last year he has seen a neurologist in [facility] had EEGs and CT scans and everything is normal. But these only happen when he is sleeping. Patient's only complaint before he went to sleep is that he was tired. Patient denies any coughs colds fevers chills nausea vomiting diarrhea constipation Related Data Home Medications ?Medication ?Instructions ?Recorded ?Confirmed acetaminophen 500 mg tablet 500 mg PO Q4H PRN Pain 08/16/19 08/20/23 (Acetaminophen Extra Strength) aspirin 81 mg chewable tablet 81 mg PO ONCE 08/16/19 08/20/23 cholecalciferol (vitamin D3) 50 50 mcg PO DAILY 08/16/19 08/20/23 mcg (2,000 unit) capsule (D3-2000) esomeprazole magnesium 40 mg 40 mg PO ONCE 08/16/19 08/20/23 capsule,delayed release glipizide 5 mg tablet 5 mg PO BID 08/16/19 08/20/23 metformin 1,000 mg 24 hr 1,000 mg PO BID 08/16/19 08/20/23 tablet,extended release (gastric reten.) omega-3 fatty acids 500 mg capsule 500 mg PO BID 08/16/19 08/20/23 sildenafil 50 mg tablet (Viagra) 25 mg PO ONCE PRN Sexual Activity 08/16/19 08/20/23 amitriptyline 50 mg tablet 25 mg PO .BEDTIME 10/11/19 08/20/23 fluticasone propionate 50 2 spray intranasal DAILY 02/08/20 08/20/23 mcg/actuation nasal spray,suspension clindamycin phosphate 1 % lotion 1 applic topical BID 10/16/20 08/20/23 rosuvastatin 5 mg tablet (Crestor) 5 mg PO DAILY 06/04/21 08/20/23 albuterol sulfate 90 mcg/actuation 1 inh inhalation Q6H PRN shortness 09/02/21 08/20/23 aerosol inhaler (ProAir HFA) of breath or wheezing fluticasone 250 mcg-salmeterol 50 1 inh inhalation BID 08/20/23 08/20/23 mcg/dose blistr powdr for inhalation (Wixela Inhub) Previous Rx's ?Medication ?Instructions ?Recorded Night Splint #1 ea 01/24/20 Jobst medical compression #1 ea 09/11/20 stockings 20-30 mmHg nitroglycerin 0.1 mg/hr 1 patch transdermal DAILY #60 ea 11/13/20 transdermal 24 hour patch hydrocodone 10 mg-acetaminophen 1 tab PO TID PRN pain 30 days #90 08/13/21 325 mg tablet tabs hydrocodone 10 mg-acetaminophen 1 tab PO TID PRN pain 30 days #90 08/13/21 325 mg tablet tabs tizanidine 4 mg tablet 4 mg PO TID PRN muscle spasticity 08/13/21 30 days #90 tabs Allergies Allergy/AdvReac Type Severity Reaction Status Date / Time gabapentin Allergy hallucinati Verified 08/20/23 09:07 ons pregabalin (From Lyrica) Allergy rash Verified 08/20/23 09:07 tiagabine (From Gabitril) Allergy seeing Verified 08/20/23 09:07 things per pt Review of Systems General: Reports: 10 or more systems reviewed and unremarkable except in HPI and below PFSH ED PFSH: Medical History Diverticulosis Bleeding per rectum Chronic back pain Chronic narcotic use COPD (chronic obstructive pulmonary disease) Diabetes 1.5, managed as type 2 Asthma 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 Bilateral leg pain Complex regional pain syndrome type 1 Long-term use of high-risk medication Surgical History S/P compartment syndrome decompression BILATERAL- Below the knee - total of 4 surgeries 2 initial surgeries and 2 revisions S/P insertion of spinal cord stimulator 04/2018 S/P routine circumcision Hx of biopsy cyst on the left side of neck-benign Family History Grandfather CAD (coronary artery disease) Denies family history of Anesthesia complication Bleeding disorder Social History Smoking and tobacco/nicotine status: never used tobacco/nicotine (chewing tobacco x 20 years) Second hand smoke exposure: No Alcohol intake: never Substance/Drug Use: never Lives independently: Yes Household members: spouse service: Yes status: Discharged Physical Exam Const: COMMON NORMALS: no acute distress, average body habitus, patient oriented x3, no limitations, healthy appearing, alert and well nourished HENMT: COMMON NORMALS: normocephalic, atraumatic, hearing grossly normal bilaterally, external ears normal and Normal external nose present HEAD & SCALP: normocephalic and atraumatic NOSE: Normal external nose present EXTERNAL EAR: Yes external ears normal Eye: COMMON NORMALS: Equal, round and reactive pupils present, EOMs intact bilaterally, conjunctivae normal and no scleral icterus CONJUNCTIVA: Yes conjunctivae normal PUPIL: Yes Equal, round and reactive pupils present Neck/C-Spine: COMMON NORMALS: full ROM, no lymphadenopathy, supple, no meningeal signs, no JVD and Thyroid normal THYROID: Thyroid normal Chest: COMMONS NORMALS: normal inspection of the chest and normal palpation of entire chest wall Resp: COMMON NORMALS: normal respiratory effort, No retractions, No use of accessory muscles and clear to auscultation bilaterally AUSCULTATION: clear to auscultation bilaterally Cardio: COMMON NORMALS: no JVD, regular rate, regular rhythm, S1 normal heart sound present, S2 normal heart sound present, No gallops present (Cardio), No clicks present (Cardio), No murmurs present (Cardio) and No rub (Cardio) RATE: regular rate RHYTHM: regular rhythm HEART SOUNDS: S1 normal heart sound present and S2 normal heart sound present GI: COMMON NORMALS: Normal to inspection, nondistended, normoactive bowel sounds present, Soft to palpation, non-tender, No hepatosplenomegaly present and no masses PALPATION: Yes Soft to palpation and Yes No hepatosplenomegaly present Neuro: COMMON NORMALS: patient oriented x3 SENSORIUM/ORIENTATION: Yes alert MENINGEAL SIGNS: Yes no meningeal signs Course Vital Signs: Vital signs: Vital Signs Temperature 98.1 F 09/16/24 02:05 Pulse Rate 95 02/08/25 02:05 Respiratory Rate 18 09/16/24 02:05 Blood Pressure 118/81 09/16/24 02:05 Pulse Oximetry 96 09/16/24 02:05 MDM - Neuro Symptoms/Deficit Medical Decision Making Lab work was reviewed included CBC CMP prolactin magnesium fairly benign. Patient was unable to provide us urine sample. These results was discussed with the patient. Patient be discharged and is to follow-up with his PCP within next 7 days. He said he has appointment already. Medical Records I reviewed the patient's medical records. Lab Data I reviewed the patient's lab results. 09/16/24 03:47 09/16/24 03:47 Laboratory Results WBC 11.20 10^3/uL (3.29-11.43) 09/16/24 03:47 RBC 4.99 10^6/uL (3.85-5.65) 09/16/24 03:47 Hgb 14.80 g/dL (11.27-16.99) 09/16/24 03:47 Hct 43.8 % (37-53) 09/16/24 03:47 MCV 87.8 fl (82-101) 09/16/24 03:47 MCH 29.7 pg (27-33) 09/16/24 03:47 MCHC 33.8 g/dL (30-55) 09/16/24 03:47 RDW 12.5 % (12.1-15.1) 09/16/24 03:47 Plt Count 363 10^3/cmm (157-399) 09/16/24 03:47 MPV 8.9 fL (7.4-10.4) 09/16/24 03:47 Neut % (Auto) 81.4 % 09/16/24 03:47 Lymph % (Auto) 12.1 % 09/16/24 03:47 [place] % (Auto) 4.8 % 09/16/24 03:47 Eos % (Auto) 0.8 % 09/16/24 03:47 Baso % (Auto) 0.5 % 09/16/24 03:47 Neut # (Auto) 9.11 10^3/uL (1.8-7.7) H 09/16/24 03:47 Lymph # (Auto) 1.4 10^3/uL (0.8-4.8) 09/16/24 03:47 [place] # (Auto) 0.5 10^3/uL (0.2-0.9) 09/16/24 03:47 Eos # (Auto) 0.1 10^3/uL (0.0-0.8) 09/16/24 03:47 Baso # (Auto) 0.1 10^3/uL (0.0-0.1) 09/16/24 03:47 Nucleated RBC % (auto) 0 % 09/16/24 03:47 Nucleated RBCs # 0.0 /100WBC 09/16/24 03:47 Sodium 139 mmol/L (136-145) 09/16/24 03:47 Potassium 3.7 mmol/L (3.5-5.1) 09/16/24 03:47 Chloride 104 mmol/L (98-107) 09/16/24 03:47 Carbon Dioxide 23 mmol/L (22-29) 09/16/24 03:47 Anion Gap 15.7 (5-19) 09/16/24 03:47 BUN 12 mg/dL (6-20) 09/16/24 03:47 Creatinine 0.8 mg/dL (0.7-1.2) 09/16/24 03:47 GFR Calculation 106.0 mL/min (90-130) 09/16/24 03:47 Glucose 148 mg/dL (65-115) H 09/16/24 03:47 Calculated Osmolality 291 mOsm/kg (285-295) 09/16/24 03:47 Calcium 9.7 mg/dL (8.5-10.5) 09/16/24 03:47 Magnesium 2.6 mg/dL (1.7-2.3) H 09/16/24 03:47 Total Bilirubin 0.2 mg/dL (0.15-1.2) 09/16/24 03:47 AST 13 U/L (0-40) 09/16/24 03:47 ALT 16 U/L (0-41) 09/16/24 03:47 Alkaline Phosphatase 84 U/L (40-130) 09/16/24 03:47 Total Protein 7.5 g/dL (6.6-8.7) 09/16/24 03:47 Albumin 4.7 g/dL (3.5-5.2) 09/16/24 03:47 Globulin 2.8 g/dL (1.3-4.6) 09/16/24 03:47 Prolactin 3.63 ng/mL (4.0-15.2) L 09/16/24 03:47 All radiology interpretation(s) finalized by discharge Discharge Plan Discharge Patient Disposition: Home Clinical Impression: Observed seizure-like activity Condition: Stable Prescriptions: No Action acetaminophen [Acetaminophen Extra Strength] 500 mg tablet 500 mg PO Q4H PRN (Reason: Pain) metformin 1,000 mg tablet,ER leonid.retention 24 hr 1,000 mg PO BID omega-3 fatty acids 500 mg capsule 500 mg PO BID esomeprazole magnesium 40 mg capsule,delayed release(DR/EC) 40 mg PO ONCE glipizide 5 mg tablet 5 mg PO BID sildenafil [Viagra] 50 mg tablet 25 mg PO ONCE PRN (Reason: Sexual Activity) aspirin 81 mg tablet,chewable 81 mg PO ONCE cholecalciferol (vitamin D3) [D3-2000] 50 mcg (2,000 unit) capsule 50 mcg PO DAILY amitriptyline 50 mg tablet 25 mg PO .BEDTIME rosuvastatin [Crestor] 5 mg tablet 5 mg PO DAILY (DME) Jobst medical compression stockings 20-30 mmHg See Rx Instructions .Route .MEDSUPPLY Qty: 1 0RF Rx Instructions: As directed nitroglycerin 0.1 mg/hr patch 24 hour 1 patch transdermal DAILY Qty: 60 3RF hydrocodone-acetaminophen 10-325 mg tablet 1 tab PO TID PRN (Reason: pain) 30 Days Qty: 90 0RF Rx Instructions: fill on or after 08/15/21 hydrocodone-acetaminophen 10-325 mg tablet 1 tab PO TID PRN (Reason: pain) 30 Days Qty: 90 0RF Rx Instructions: fill on or after 09/14/21 tizanidine 4 mg tablet 4 mg PO TID PRN (Reason: muscle spasticity) 30 Days Qty: 90 1RF (DME) Night Splint See Rx Instructions .ROUTE .MEDSUPPLY Qty: 1 0RF Rx Instructions: As directed fluticasone propionate 50 mcg/actuation spray,suspension 2 spray INTRANASAL DAILY Rx Instructions: administer into each nostril clindamycin phosphate 1 % lotion 1 applic topical BID fluticasone propion-salmeterol [Wixela Inhub] 250-50 mcg/dose blister with device 1 inh inhalation BID albuterol sulfate [ProAir HFA] 90 mcg/actuation HFA aerosol inhaler 1 inh INHALATION Q6H PRN (Reason: shortness of breath or wheezing) Discharge Orders: Discharge ED (Routine); Ordered 09/16/24 Ordered By: Gilmar Zuniga Referrals: Ibrahima Null DO [Primary Care Provider] - Patient Instructions: Absence Seizure Activity Restrictions/Additional Instructions: Your evaluation ER did not show any acute cause of your symptomatology. Please follow-up with your family practice physician in the next 7 days for further evaluation and treatment. Print Language: [place] Coding Level of Care Code ED [employer] Ref[employer] Operator for Rachana Fuentes
[2024-09-16 03:53] LABS: Basophils # 0.1 10^3/uL (0.0-0.1); Basophils % 0.5 %; Eosinophils # 0.1 10^3/uL (0.0-0.8); Eosinophils % 0.8 %; Hematocrit 43.8 % (37-53); Lymphocytes # 1.4 10^3/uL (0.8-4.8); Lymphocytes % 12.1 %; Mean Corpuscular HGB Conc 33.8 g/dL (30-55); Mean Corpuscular Hemoglobin 29.7 pg (27-33); Mean Corpuscular Volume 87.8 fl (82-101); Mean Platelet Volume 8.9 fL (7.4-10.4); Monocytes # 0.5 10^3/uL (0.2-0.9); Monocytes % 4.8 %; Neutrophils # 9.11 10^3/uL (1.8-7.7); Neutrophils % 81.4 %; Nucleated Red Blood Cells % 0 %; Platelet Count 363 10^3/cmm (157-399); Red Blood Count 4.99 10^6/uL (3.85-5.65); Red Cell Distribution Width 12.5 % (12.1-15.1)
[2024-09-16 04:25] LABS: Alanine Aminotransferase 16 U/L (0-41); Albumin Level 4.7 g/dL (3.5-5.2); Alkaline Phosphatase 84 U/L (40-130); Anion Gap 15.7 (5-19); Aspartate Amino Transferase 13 U/L (0-40); Blood Urea Nitrogen 12 mg/dL (6-20); Calcium 9.7 mg/dL (8.5-10.5); Carbon Dioxide 23 mmol/L (22-29); Chloride 104 mmol/L (98-107); Creatinine Clr Calc Pharmacy 126.1294; Globulin 2.8 g/dL (1.3-4.6); Glucose 148 mg/dL (65-115); Magnesium 2.6 mg/dL (1.7-2.3); Osmolality Calculated 291 mOsm/kg (285-295); Potassium 3.7 mmol/L (3.5-5.1); Prolactin 3.63 ng/mL (4.0-15.2); Sodium 139 mmol/L (136-145); Total Bilirubin 0.2 mg/dL (0.15-1.2); Total Protein 7.5 g/dL (6.6-8.7)
[2024-09-16 04:58] VITALS: BP 108/74; PULSE 82; O2SAT 92
[2024-09-16 05:03] VITALS: BP 108/74; PULSE 82; O2SAT 92
== END 2024-09-16 05:05 | disposition home or self-care (01) ==
PROVIDERS: Emergency Provider Emergency Medicine; PCP Emergency Medicine Emergency Medical Services
DX: R56.9 Unspecified convulsions (principal); Z79.84 Long term (current) use of oral hypoglycemic drugs; F17.220 Nicotine dependence, chewing tobacco, uncomplicated; J44.9 Chronic obstructive pulmonary disease, unspecified; E13.9 Other specified diabetes mellitus without complications
CPT/HCPCS: 36415; 80053; 83735; 84146; 85025; 99283